=== PATIENT | male | born 1945 | race Caucasian/White ===

== ENCOUNTER → 2017-05-23 05:00 | Outpatient (REF) | payer MEDICAID, SELFPAY ==
[2017-05-26 16:11] LABS: KEPPRA (LEVETIRACETAM) 35.4 ug/mL (10.0-40.0)
== END ==
LOC: OLS.ACW200 05:00
PROVIDERS: Visit Provider Internal Medicine
DX: C71.8 Malignant neoplasm of overlapping sites of brain (principal); E11.9 Type 2 diabetes mellitus without complications; R13.19 Other dysphagia; I25.10 Atherosclerotic heart disease of native coronary artery without angina pectoris
CPT/HCPCS: 36415; 80177